=== PATIENT | female | born 1990 | race Caucasian/White ===

== ENCOUNTER 2022-06-01 14:00 | Outpatient (RCR) | payer BC, SELFPAY | END 2022-10-11 14:39 | disposition home or self-care (01) | PROVIDERS: PCP Family Medicine; Visit Provider Family Medicine | DX: Z34.92 Encounter for supervision of normal pregnancy, unspecified, second trimester (principal); K64.9 Unspecified hemorrhoids; K64.5 Perianal venous thrombosis; M54.50 Low back pain, unspecified; R27.9 Unspecified lack of coordination; M62.08 Separation of muscle (nontraumatic), other site; Z51.89 Encounter for other specified aftercare | CPT/HCPCS: 97110; 97140; 97162; 97164; 97530 ==

== ENCOUNTER 2025-02-11 13:12 | Outpatient (CLI) | payer BC, SELFPAY ==
--- NOTE | 2025-02-11 13:00 | CRLHL7_ITS ---
For Patients: As a result of the Century Cures Act, medical imaging exams and procedure reports are released immediately into your electronic medical record. You may view this report before your referring provider. If you have questions, please contact your health care provider. OB ULTRASOUND INDICATION: Dating and viability. TECHNIQUE: Real time grayscale imaging of the fetus was performed. Transvaginal. Transvaginal imaging performed to better demonstrate the endometrium and ovaries. LMP: 12/15/2024. SHAYY by LMP: 09/21/2025. GA: 8 w, 2 d. Previous US: No. CRL: 2.0 cm. 8 w 4 d. SHAYY: 09/19/2025. FHR: 173 BPM. Gestational sac: 3.3 cm. Appears within normal limits. Yolk sac: 3.5 mm. Appears within normal limits. Right ovary: Within normal limits. 5.3 x 3.2 x 3.6 cm. CL. Left ovary: Within normal limits. 3.1 x 1.2 x 1.4 cm. IMPRESSION: 1. Single living intrauterine measures 8 weeks 4 days with sonographic due date 09/19/2025. 2. Corpus luteal cyst right ovary measures 2.5 x 2.3 x 2.7 cm. 3. Simple right ovarian cyst measures 2.5 x 2.1 x 3.0 cm. 4. Subchorionic hemorrhage measures 1.4 x 0.7 x 1.8 cm. Santi Randall M.D. Diagnostic Radiologist [email or web address] [email or web address] pope/Dictated by: Satni Randall MD @ 02/11/2025 5:27:00 PM (Electronically Signed)
== END 2025-02-11 13:13 | disposition home or self-care (01) ==
LOC: US 13:13
PROVIDERS: PCP Family Medicine; Visit Provider Registered Nurse
DX: O34.81 Maternal care for other abnormalities of pelvic organs, first trimester (principal); N83.11 Corpus luteum cyst of right ovary; N83.291 Other ovarian cyst, right side; O20.9 Hemorrhage in early pregnancy, unspecified
CPT/HCPCS: 76817; 83021; 86703; 86706; 86803; 86850; 86900; 86901; 87086; 87340

== ENCOUNTER 2025-02-11 14:07 | Outpatient (CLI) | payer BC, SELFPAY | END 2025-02-11 14:08 | disposition home or self-care (01) | PROVIDERS: PCP Family Medicine; Visit Provider Registered Nurse | DX: Z34.91 Encounter for supervision of normal pregnancy, unspecified, first trimester (principal) | CPT/HCPCS: 83020; 83021; 85660; 86592; 86703; 86704; 86706; 86762; 86787; 86803; 86850; 86900; 86901; 87086; 87340 ==